=== PATIENT | female | born 1970 | race Two or more races ===

== ENCOUNTER 2020-02-02 14:28 | Outpatient (CLI) | payer OTHER | END 2020-02-02 17:49 | disposition home or self-care (01) | LOC: OFIC 805 14:28 | PROVIDERS: ATTEND Otolaryngology Otology & Neurotology | DX: H80.82 Other otosclerosis, left ear (principal); H90.12 Conductive hearing loss, unilateral, left ear, with unrestricted hearing on the contralateral side ==

== ENCOUNTER 2020-02-06 14:15 | Outpatient (CLI) | payer OTHER | END 2020-02-06 14:27 | disposition home or self-care (01) | LOC: TOM 14:15 | PROVIDERS: ATTEND Otolaryngology Otology & Neurotology | DX: H80.82 Other otosclerosis, left ear (principal) ==

== ENCOUNTER 2020-02-12 14:40 | Outpatient (CLI) | payer OTHER | END 2020-02-12 17:25 | disposition home or self-care (01) | LOC: OFIC 805 14:40 | PROVIDERS: ATTEND Otolaryngology Otology & Neurotology | DX: H80.82 Other otosclerosis, left ear (principal); H90.12 Conductive hearing loss, unilateral, left ear, with unrestricted hearing on the contralateral side ==